=== PATIENT | male | born 1985 | race Caucasian/White ===

== ENCOUNTER 2021-10-22 02:08 | Observation (INO) ==
[2021-10-22] MEDS ORDERED: 0.9 % Sodium Chloride 1,000 ML IV ONE (02:21)
[2021-10-22] MEDS ORDERED: Ketorolac 30 MG/ML VIAL IVP ONE (02:21)
[2021-10-22 03:19] LABS: Basophils # 0.1 K/mcL (0.0-0.2); Basophils % 0.8 %; Eosinophils # 0.1 K/mcL (0.0-0.6); Eosinophils % 1.8 %; Hematocrit 47.3 % (37.5-50.1); Hemoglobin 15.9 g/dL (12.9-16.9); Immature Granulocytes % 0.2 % (0-4); Lymphocytes # 2.1 K/mcL (0.6-4.6); Lymphocytes % 35.1 %; Mean Corpuscular HGB Conc 33.6 g/dL (31.6-35.5); Mean Corpuscular Hemoglobin 27.4 pg (28.0-33.3); Mean Corpuscular Volume 81.4 fL (83.0-100.0); Mean Platelet Volume 10.6 fL (9.4-12.4); Monocytes # 0.4 K/mcL (0.0-1.3); Monocytes % 6.6 %; Neutrophils # 3.4 K/mcL (1.6-8.9); Platelet Count 179 K/mcL (140-400); Red Blood Count 5.81 M/mcL (4.19-5.50); Red Cell Distribution Width 13.4 % (11.5-14.5); Segmented Neutrophils % 55.5 %
[2021-10-22 03:32] LABS: Alanine Aminotransferase 20 Units/L (7-52); Albumin 4.2 g/dL (3.5-5.7); Albumin/Globulin Ratio 2.2 (1.1-2.2); Alkaline Phosphatase 57 Units/L (34-104); Aspartate Amino Transferase 14 Units/L (13-39); BUN/Creatinine Ratio 6 (6-26); Bilirubin,Total 0.5 mg/dL (0.3-1.0); Blood Urea Nitrogen 7 mg/dL (6-20); Calcium 9.5 mg/dL (8.6-10.3); Carbon Dioxide 33 mEq/L (23-29); Chloride 102 mEq/L (98-107); Globulin 1.9 g/dL (2.4-3.5); Glucose 106 mg/dL (70-105); Osmolality,Calculated 284 (280-300); Potassium 3.6 mEq/L (3.5-5.1); Sodium 138 mEq/L (136-145); Total Protein 6.1 g/dL (6.4-8.9); eGFR For African Americans > 60 (> 60); eGFR For Non-African Americans > 60 (> 60)
[2021-10-22] MEDS ORDERED: Piperacillin/Tazobactam 3.375 GM in 0.9 % Sodium Chloride Mini Bag 100 ML IVP ONE (05:37)
[2021-10-22 07:00] LABS: Bacteria,Urine Few per hpf (None-Few); Bilirubin,Urine Negative (Negative); Blood,Urine Negative (Negative); Clarity,Urine Turbid (Clear); Color,Urine Light-Yellow (Yellow); Glucose,Urine (UA) Normal (Normal); Ketones,Urine Negative (Negative); Leukocyte Esterase,Urine Negative (Negative); Mucus,Urine Few per lpf (None-Few); Nitrite,Urine Negative (Negative); PH,Urine 6.5 pH Units (5.0-8.0); Protein,Urine Negative (Neg-Trace); RBC,Urine 0-3 per hpf (0-3); Specific Gravity,Urine 1.019 (1.010-1.025); Squamous Epithelial Cell,Urine Few per hpf (None-Few); Urobilinogen,Urine Normal (Normal); WBC,Urine 0-3 per hpf (0-3)
[2021-10-22] MEDS ORDERED: Ondansetron 4 MG/2 ML VIAL IVP PRN ×3 (09:22→17:28)
[2021-10-22] MEDS ORDERED: 0.9 % Sodium Chloride 1,000 ML IVC SCH (09:30)
[2021-10-22] MEDS ORDERED: Acetaminophen IV 1,000 MG/100 ML BAG IVPB SCH (12:00)
[2021-10-22] MEDS ORDERED: Lidocaine HCL 4 ML Topical Solution (Laryng-O-Jet Kit Sterile Pak) TP ONE (14:57)
[2021-10-22] MEDS ORDERED: Ondansetron 4 MG/2 ML VIAL ONE (14:57)
[2021-10-22] MEDS ORDERED: Lidocaine -MPF 2% 5 ML VIAL ONE (14:57)
[2021-10-22] MEDS ORDERED: *HR* Rocuronium Bromide 50 MG/5 ML VIAL ONE (14:57)
[2021-10-22] MEDS ORDERED: *HR* Succinylcholine 200 MG/10 ML VIAL IVP ONE (14:57)
[2021-10-22] MEDS ORDERED: *HR* FentaNYL (PF) 100 MCG/2 ML VIAL ONE (15:00)
[2021-10-22] MEDS ORDERED: *HR* Midazolam HCl 2 MG/2 ML VIAL ONE (15:00)
[2021-10-22] MEDS ORDERED: *HR* Propofol 200 MG/20 ML VIAL IVP ONE ×2 (15:00→16:05)
[2021-10-22] MEDS ORDERED: Sugammadex Sodium 200 MG/2 ML VIAL IV ONE (15:47)
[2021-10-22] MEDS ORDERED: *HR* HYDROMORPHONE 2 MG/ML VIAL ONE (15:47)
[2021-10-22] MEDS ORDERED: Piperacillin/Tazobactam 3.375 GM in 0.9 % Sodium Chloride Mini Bag 100 ML IVPB SCH (16:00)
[2021-10-22] MEDS: *HR* HYDROmorphone PF 0.5 MG/0.5 ML SYRINGE IVP PRN ×2 (16:48→17:00)
[2021-10-22] MEDS ORDERED: *HR* OxyCODONE/APAP 5/325 TABLET PO PRN (17:28)
[2021-10-22] MEDS: Ketorolac 30 MG/ML VIAL IVP SCH (17:47)
[2021-10-23] MEDS: Piperacillin/Tazobactam 3.375 GM in 0.9 % Sodium Chloride Mini Bag 100 ML IVPB SCH ×2 (00:14→08:42)
[2021-10-23] MEDS: Ketorolac 30 MG/ML VIAL IVP SCH ×2 (00:15→04:08)
[2021-10-23 01:43] LABS: Basophils % 0.2 %; Hematocrit 44.5 % (37.5-50.1); Immature Granulocytes % 0.5 % (0-4); Lymphocytes % 8.2 %; Mean Corpuscular HGB Conc 33.7 g/dL (31.6-35.5); Mean Corpuscular Volume 83.2 fL (83.0-100.0); Mean Platelet Volume 11.1 fL (9.4-12.4); Monocytes # 0.4 K/mcL (0.0-1.3); Monocytes % 3.7 %; Neutrophils # 10.4 K/mcL (1.6-8.9); Platelet Count 164 K/mcL (140-400); Red Blood Count 5.35 M/mcL (4.19-5.50); Red Cell Distribution Width 13.3 % (11.5-14.5); Segmented Neutrophils % 87.4 %
[2021-10-23 01:44] LABS: White Blood Count 11.9 K/mcL (4.3-11.1)
[2021-10-23 08:11] VITALS: BP 116/74; PULSE 81; TEMP 97.4; O2SAT 95
== END 2021-10-23 11:44 | disposition home or self-care (01) ==
LOC: EMEROOARM 02:08 → 3ANU 02:08
PROVIDERS: ADMIT Surgery; ATTEND Surgery